=== PATIENT | male | born 1945 | race Caucasian/White ===

== ENCOUNTER 2016-12-21 20:36 | Emergency (ER) | payer MEDICARE, OTHER ==
--- NOTE | 2016-12-21 21:06 | ERNOTE ---
Dizziness ER Record Date of Service: 12/21/16 Presenting Symptoms: dizziness Time Seen by Provider: 12/21/16 20:50 Source: patient Immunizations: IMMUNIZATION HX Immunizations Up to Date Yes History of Influenza Vaccine No Hx Pneumococcal Vaccination No Allergies/Adverse Reactions: Allergies Allergy/AdvReac Type Severity Reaction Status Date / Time Sulfa (Sulfonamide Allergy Intermediate Hives/swell Verified 12/21/16 21:03 Antibiotics) ing Home Medications: HOME MEDICATIONS Aspirin [Aspirin Enteric Coated] 81 mg PO DAILY 12/21/12 [Last Taken Unknown] Esomeprazole Magnesium [Nexium] 40 mg PO DAILY 12/21/12 [Last Taken Unknown] Meclizine HCl 12.5 mg PO TID PRN 12/21/12 [Last Taken Unknown] rOPINIRole HCL [Requip] 2 mg PO HS 12/21/12 [Last Taken Unknown] Albuterol Sulfate/Ipratropium [Duoneb 2.5-0.5MG/3ML Soln] 3 ml IH BID 08/02/14 [ Last Taken Unknown] Albuterol Sulfate [Proair Hfa] 2 puff IH Q4H PRN 02/19/15 [Last Taken Unknown] Finasteride [Proscar] 5 mg PO BID 02/19/15 [Last Taken Unknown] Levothyroxine Sodium [Tirosint] 25 mcg PO DAILY 02/19/15 [Last Taken Unknown] Losartan Potassium [Cozaar] 50 mg PO DAILY 02/19/15 [Last Taken Unknown] Tamsulosin HCl [Flomax] 0.8 mg PO DAILY 02/19/15 [Last Taken Unknown] Tiotropium [place] [Spiriva] 1 cap IH DAILY 02/19/15 [Last Taken Unknown] Tolterodine Tartrate [Detrol LA] 2 mg PO BID 02/19/15 [Last Taken Unknown] Calcium Polycarbophil [Fibercon] 2 tab PO TID 12/02/15 [Last Taken Unknown] rOPINIRole HCL [Requip] 1 mg PO QAM 12/02/15 [Last Taken Unknown] - History of Present Illness Narrative: This is a 71-year-old male who comes to the emergency department with a very mild left lower quadrant abdominal discomfort. It is stated below level III or 4 for the last 24 or more hours. Patient is slightly constipated. He denies blood in his urine. He denies blood in his stool. He has no nausea or vomiting. Patient also notes that over the last 24 hours he is getting dizzy. He says he feels like the room is spinning. He's never had this before. He denies any recent illicit drugs or alcohol use. He denies any recent head trauma. The patient has no other complaints. The dizziness gets worse when standing up does not change when he closes his eyes Review of Systems - Review of Systems Constitutional: Present: no symptoms reported EYE: Present: no symptoms reported ENT: Present: no symptoms reported Respiratory: Present: no symptoms reported Cardiology: Present: no symptoms reported Gastrointestinal/Abdominal: Present: abdominal pain Genitourinary: Present: no symptoms reported Musculoskeletal: Present: no symptoms reported Skin: Present: no symptoms reported Neurological: Present: dizziness/light-headedness Endocrine: Present: no symptoms reported - Patient's Past Medical History Patient History - Medical: GERD, Hypothyroidism, Other Patient History - Cardiac/Respiratory: COPD, Hypertension, Hyperlipidemia Patient History - Cancer: No Hx of Cancer Patient History - Surgical Procedures: Appendectomy, Cholecystectomy, Colonoscopy, EGD, Other Patient History - Other: None - Family History Mother Family History - Medical: , No pertinent hx Family History - Cardiac/Respiratory: Other Father Family History - Medical: , No pertinent hx Family History - Cardiac/Respiratory: No pertinent hx - Social History Living Situations: home Abuse History: No History of abuse Psych History: Hx of Anxiety, Current tx/ever been on anti-depressants or anti- anxiety meds - Immunizations Immunizations Up to Date: Yes Hx Pneumococcal Vaccination: No History of Influenza Vaccine: No Physical Exam - Physical Exam General Appearance: Present: wd/wn, alert, no apparent distress Head Exam: Present: normal inspection, no evidence of injury Eye Exam: Normal inspection: bilateral, PERRL: bilateral, EOMI: bilateral Ears, Nose, Throat: Present: normal ENT inspection, normal pharynx Neck: Present: normal inspection, nontender Respiratory: Present: no respiratory distress, normal breath sounds, no accessory muscle use, lungs clear Cardiovascular/Chest: Present: regular rate, rhythm, no murmur, normal peripheral pulses Gastrointestinal/Abdominal: Present: normal bowel sounds, soft, other - slightly distended. Soft. No significant tenderness. No rebound or guarding. Back Exam: Present: normal inspection, normal range of motion, no CVA tenderness , no vertebral tenderness Extremity Exam: Present: normal inspection, non-tender, normal range of motion, no edema Neurological Exam: Present: alert, oriented, normal mood/affect Skin Exam: Present: normal color, warm/dry Lymphatic Exam: Present: no adenopathy ED Progress - Results and Orders Patient's Lab Results:: I have reviewed the patient's lab results. - Vital Signs Patient's Vital Signs:: I have reviewed the patient's vital signs. Vital Signs: Vital Signs 12/21/16 20:45 Temperature 36.8 C Pulse Rate 89 Respiratory 14 Rate Blood Pressure 155/66 O2 Sat by Pulse 95 Oximetry - CT/Ultrasound CT/Ultrasound Narrative: CT does not demonstrate any acute pathology - Progress/Reassessment Chief Complaint: Dizziness Progress:: Improved Departure Clinical Impression: Vertigo - Departure Disposition: Home self-care Condition: Good Instructions: Dizziness, [id number] Additional Instructions: As we discussed, I have not found any cause for the symptoms that you are having. This may simply be a flareup of the vertigo that U deal with on a daily basis. I want you to take her Antivert several times a day. He can take one tablet 3 times a day. score caller your family doctor and set up a follow-up appointment. Certainly if he develop any new concerning symptoms she should return to the ER. Referrals: Carolina Mahan MD [Primary Care Provider] -
[2016-12-21 21:35] LABS: Mean Cell Volume 83.2 fl (78-100); Mean Corpuscular Hgb Conc 34.9 g/dl (32-36); Mean Platelet Volume 9.7 fl (6.0-9.5); Neutrophil # 7.4 K/mm3 (1.3-6.0); Neutrophil % 68.2 % (42-75.0); Platelet Count 231 K/mm3 (150-450); Red Blood Count 5.17 M/mm3 (4.7-6.0); Red Cell Distribution Width 13.1 % (11.5-14.0); Urine Bilirubin Negative (NEGATIVE); Urine Ketone Negative (NEGATIVE); Urine Nitrite Negative (NEGATIVE); Urine Protein Negative (NEGATIVE); Urine Specific Gravity <=1.005 SP.GR. (1.005-1.030); Urine Urobilinogen Normal (NORMAL); White Blood Count 10.9 K/mm3 (4.0-10.5)
[2016-12-21 21:44] LABS: Urine Appearance Clear; Urine Bacteria TRACE; Urine Blood 5 /ul (NEGATIVE); Urine Color Pale Yellow; Urine RBC None Seen /hpf (0-5); Urine WBC None Seen /hpf (0-5)
[2016-12-21 21:45] LABS: Albumin * 3.9 gm/dl (3.4-5.0); Anion Gap 16.9 mmol/L (6.8-13.8); BUN/Creatinine Ratio 14.8 (9.0-21.6); Bilirubin, Total 0.3 mg/dL (0.0-1.1); Ca. Corrected For Albumin 8.5 mg/dL (8.4-10.2); Calcium * 8.7 mg/dL (7.9-10.9); Potassium 3.9 mmol/L (3.4-4.6); Total Protein 7.3 gm/dL (6.2-8.2)
[2016-12-21] MEDS ORDERED: DIATRIZOATE MEGLUMINE, SODIUM 30 ML BTL ONE (21:58)
[2016-12-21 23:40] VITALS: BP 124/56
== END 2016-12-22 00:56 | disposition home or self-care (01) ==
LOC: ER 20:36
DX: R42 Dizziness and giddiness (principal)